=== PATIENT | male | born 1980 | race Caucasian/White ===

== ENCOUNTER 2024-10-02 20:48 | Emergency (ER) | payer MEDICAID, SELFPAY ==
[2024-10-02 20:50] VITALS: BP 132/98; PULSE 68; RESP 20; TEMP 36.3; O2SAT 98
--- NOTE | 2024-10-02 21:00 | RT.EKG_ITS ---
APPROVED REPORT Exam: Resting ECG Reason for Exam: chest burning Patient Location: E HR:63 bpm ECG Measurements Heart Rate 63 AXIS AK 156 P 63 QRSd 119 QRS 60 QT 396 T 64 QTc 406 Conclusion Sinus rhythm...normal P axis, V-rate 60- 99 Probable left ventricular hypertrophy...multiple LVH criteria ST elev, probable normal early repol pattern...ST elevation, age<[address] segment or T wave abnormalities to suggest occlusive HI
--- NOTE | 2024-10-02 21:00 | DI.CT_ITS ---
Exam(s) CT CHEST PE CTA EXAM: CT CHEST PE CTA CLINICAL HISTORY: pink sputum, SOB. TECHNIQUE: Imaging Protocol: Axial CT angiography was performed with multi-slice acquisition and mu lti-planar reconstructions as well as axial, coronal and sagittal MIP reconstructions. Computer aided detection (CAD) was utilized. CONTRAST MATERIAL: Intravenous: Omnipaque 350 Contrast volume:85 ml COMPARISON: No exams were available for comparison FINDINGS: Pulmonary Arteries: No evidence of filling defect to suggest pulmonary emboli. Mediastinum and [place]: No dominant adenopathy or fluid collection. Pulmonary parenchyma: No consolidation or dominant measurable mass. Pleura: No effusion or pneumothorax. Heart: The heart is not dilated. Minimal coronary artery calcifications are seen. Aorta: Thoracic aorta non-dilated. No dissection. Upper abdomen: No acute findings. Bones: Unremarkable for age. Tubes, Catheters, and Lines: None Soft tissues: Bilateral gynecomastia. IMPRESSION: No evidence of pulmonary embolism or other acute abnormality in the chest. RADIATION DOSE DELIVERED: 77.25mGy.cm Total DLP DATA REPOSITORY: All CT scans at this facility are submitted to the National Radiology Data Registry (NRDR) Dose Index Registry (DIR) with the [employer] ([employer]). RADIATION OPTIMIZATION: All CT scans at this facility use at least one of these dose optimization te chniques: automated exposure control; mA and/or kV adjustment per patient size (includes targeted exa ms where dose is matched to clinical indication); or iterative reconstruction.
--- NOTE | 2024-10-02 21:00 | ED.GENADUL_ITS ---
Discharge Plan Disposition Patient Disposition: Home Condition: Stable Discharge Details Clinical Impression: COPD exacerbation Primary Care Provider: Unknown,Unknown ED Provider: Haim Ness Home Meds and New Rx's Prescriptions: New azithromycin 250 mg tablet See Rx Instructions .ROUTE .COMPLEX Qty: 6 0RF Rx Instructions: For 250 mg dose pack: take 500 mg today (day 1), then 250 mg for 4 days (days 2-5) Discharge Instructions Instructions: Azithromycin (Systemic), COPD Exacerbation, Adult ED Additional Instructions: You were seen in the emergency department for your difficulty breathing, URI and incredibly heavy smoker. It is unwise to be smoking 2 packs of cigarettes per day with baseline asthma, you likely have severe COPD at this point. There is no overt pneumonia seen on your chest x-ray, no blood clot in the lungs, you have a nebulizer at home, I am adding azithromycin to your antibiotic regimen that you are already taking doxycycline, continue the prednisone. Please return to an emergency department for severe worsening respiratory distress but I do not think there is any acute emergent pathology at this time. Discharge Data Discharge Date/Time-TO BE ENTERED AT DEPARTURE: 10/02/24 22:55 HPI General Date/Time Provider Initiated Documentation: 10/02/24 21:00 . HPI Narrative: 44 year-old male presents to ED today by POV/ambulating with a chief complaint of shortness of breath, cough, pink frothy sputum- heavy smoking 2 PPD, heavy marijuana smoking, baseline asthma with onset 2 days ago. Quality described as burning sensation in his lungs, worsening over the past 2 days with difficulty breathing, no radiation to coughing up blood, fever, dizziness, abdominal pain, endorses productive cough. Severity is described as severe. Palliating factors include tried prednisone tablets, nebulizer at home, and was started on doxycycline at Urgent Care recently. Provoking factors include nothing specific. Patient not anticoagulated. Related Data Home Medications ?Medication ?Instructions ?Recorded ?Confirmed azithromycin 250 mg tablet See Rx Instructions PO .COMPLEX #6 10/02/24 tabs Previous Rx's ?Medication ?Instructions ?Recorded azithromycin 250 mg tablet See Rx Instructions PO .COMPLEX #6 10/02/24 tabs General Stated Complaint: SOB SERGIO: 3 Review of Systems All systems reviewed & are unremarkable except as noted in HPI and below Exam Narrative Exam Narrative: GENERAL APPEARANCE: Well-nourished, non-toxic, awake and alert, atraumatic, no acute distress. SKIN: Warm, pink, dry, intact, without rashes/lesions/ulcerations. HEAD: Normocephalic, atraumatic, normal hair distribution for gender/age. EYES: Normal conjunctiva, no exudates on lids/lashes. ENT: Nares patent, no circumoral cyanosis, no facial swelling NECK: Supple, trachea midline, painless cervical ROM. LUNGS/CHEST: Lungs CTA bilaterally- no overt rales at bases, poor air movement, mild expiratory wheezes, non-labored respirations, normal A/P diameter, symmetrical expansion, no chest wall deformity HEART (CV/PV): Regular rate and rhythm without murmur, no peripheral edema, no JVD. ABDOMEN: Soft, non-distended, no guarding. MSK: Normal ROM, no swelling/deformity to bilateral UEs or LEs, moving all extremities without weakness, no cyanosis, spine midline without tenderness, no rmal curvature. NEURO: Mental Status AAOx4 - alert to person, place, time, events No facial droop, no forehead involvement. Motor: No focal weakness - strength 5/5 in bilateral UEs and LEs, proximal and distal, symmetric. Sensory: sensation intact to light touch globally. Gait normal: patient ambulated without ataxia into ED room. PSYCH: euthymic, cooperative, pleasant, appropriate speech Course Vital Signs Vital signs: Vital Signs Temperature 36.3 C L 10/02/24 20:50 Pulse 68 10/02/24 20:50 Respiratory Rate 20 10/02/24 20:50 Blood Pressure 132/98 H 10/02/24 20:50 Pulse Oximetry 98 10/02/24 20:50 Temperature 36.3 C L 10/02/24 20:50 Temperature Source Oral 10/02/24 20:50 Pulse 68 10/02/24 20:50 Respiratory Rate 20 10/02/24 20:50 Blood Pressure 132/98 H 10/02/24 20:50 Blood Pressure Position Sitting 10/02/24 20:50 Pulse Oximetry 98 10/02/24 20:50 Oxygen Delivery Method Room Air 10/02/24 20:50 Oxygen Flow Rate 0 10/02/24 20:50 Pain Level 7 10/02/24 20:50 Medical Decision Making This dictation utilizes [id number] dictation software and may contain unedited grammatical errors. 44 year-old male presents to ED today by POV/ambulating with a chief complaint of shortness of breath, cough, pink frothy sputum- heavy smoking 2 PPD, heavy marijuana smoking, baseline asthma with onset 2 days ago. Quality described as burning sensation in his lungs, worsening over the past 2 days with difficulty breathing, no radiation to coughing up blood, fever, dizziness, abdominal pain, endorses productive cough. Severity is described as severe. Palliating factors include tried prednisone tablets, nebulizer at home, and was started on d oxycycline at Urgent Care recently. Provoking factors include nothing specific. Patients' medical history: Likely COPD, states baseline asthma, no prior records. Family and social history: 2 pack/day smoker, heavy marijuana use, drinks 12 beers per day. Pertinent exam findings / vital signs include poor air movement, hacking cough, nonhypoxic, benign abdomen, stable vitals. Differential / pathologies of concern include COPD exacerbation, asthma exacerbation, pneumonia, PE, CHF. Diagnostic studies of: -CBC, CMP, troponin I, BNP, lipase, EKG, CTA chest PE study. -CBC shows a leukocytosis of 17.8 but the patient has been taking prednisone, 0.7% immature granulocytes do suspect some infectious etiology -CMP without actionable abnormality -Magnesium within normal limits -Troponin and BNP negative -Lipase negative -Patient refused COVID swab states he was -10/01 at urgent care -EKG normal sinus rhythm, no ischemic changes -CTA chest PE study shows no acute abnormality Interventions of: -9 mL DuoNeb, 1 g magnesium over 30 minutes for shortness of breath. ED Course/Assessment/Plan: 44-year-old male who is a heavy heavy smoker presents with productive cough, has been seen at urgent care in [place] and started on doxycycline, perform significant workup here, reassured the patient that he is 98% SpO2, no likely emergent pathology, patient discharged adding azithromycin to his prednisone and doxycycline regimen as he is allergic to Augmentin. Counseled strict return criteria for any respiratory distress, patient and his spouse did get into somewhat of a very loud verbal altercation here and security had to be alerted. Findings not consistent with hypoxic respiratory failure, PE, ACS, CHF, sepsis. Disposition of COPD exacerbation. Patient verbalized understanding of the plan and return to ED criteria and engaged in shared decision making. Medical Records Medical records reviewed: Yes I reviewed the patient's medical records. Imaging Data Radiologic Study: Attestation: I personally reviewed and interpreted this imaging study as follows: Imaging: CT Scan Radiologist's impression: Exam: CTA Chest With Contrast Exam date and time: 10/02/2024 9:27 PM Age: 44 years old Clinical indication: Shortness of breath; Patient HX: [place] sputum, SOB TECHNIQUE: Imaging protocol: Computed tomographic angiography of the chest with contrast. Exam focused on the arteries. 3D rendering (Not supervised by radiologist): MIP and/or 3D reconstructed images were created by the technologist. Radiation optimization: All CT scans at this facility use at least one of these dose optimization techniques: automated exposure control; mA and/or kV adjustment per patient size (includes targeted exams where dose is matched to clinical indication); or iterative reconstruction. Contrast material: OMNIPAQUE 350; Contrast volume: 85 ml; Contrast route: INTRAVENOUS (IV); COMPARISON: No relevant prior studies available. FINDINGS: Pulmonary arteries: No pulmonary embolism identified. Aorta: No thoracic aortic aneurysm. Thyroid: Thyroid gland partially excluded from view but grossly unremarkable through its visualized portion. Lungs: No pulmonary consolidation. Pleural spaces: No pleural effusion or pneumothorax. Heart: Normal-sized heart. Lymph nodes: No pathologically enlarged mediastinal or hilar lymph nodes. Bones/joints: Lower ribs partially excluded from view and incompletely evaluated. Otherwise, no acute fracture seen among the bones of the chest. Old left clavicle fracture. Soft tissues: Moderate symmetric gynecomastia, nonspecific. IMPRESSION: No active disease is seen in the chest. Dictated and Authenticated by: Alexandr Aguilar MD. Lab Data Lab results reviewed: Yes I reviewed the patient's lab results. Labs: Laboratory Tests Range/Units 10/02/24 10/02/24 21:01 21:15 WBC (4.4-10.8) 10^3/uL 17.88 H RBC (4.36-5.78) 10^6/uL 4.96 Hgb (13.5-17.5) g/dL 16.2 Hct (40.0-50.0) % 46.2 MCV (80-95) fL 93 MCH (27.0-33.0) pg 32.7 MCHC (32.0-36.0) % 35.1 RDW (11.8-14.1) % 13.8 Plt Count (130-400) 10^3/uL 355 MPV (8.0-11.0) fL 9.0 Immature Gran % % 0.7 Neutrophils % % 84.8 Lymphocytes % % 9.8 Monocytes % % 4.4 Eosinophils % % 0.1 Basophils % % 0.2 Nucleated RBC % (0.0-0.3) % 0.0 Absolute Neutrophils (1.2-6.7) 10^3/uL 15.16 H Absolute Lymphocytes (1.2-3.4) 10^3/uL 1.75 Absolute Monocytes (0.1-0.8) 10^3/uL 0.79 Absolute Eosinophils (0.0-0.7) 10^3/uL 0.02 Absolute Basophils (0.0-0.2) 10^3/uL 0.04 Sodium (136-145) mmol/L 141 Potassium (3.5-5.1) mmol/L 3.7 Chloride (98-107) mmol/L 103 Carbon Dioxide (21.0-32.0) mmol/L 23.9 Anion Gap (3-11) mmol/L 14.1 H BUN (7-18) mg/dL 9 Creatinine (0.70-1.30) mg/dL 1.0 Est GFR (CKD-EPI 2020) (mL/min/1.73m2) 95.77 Glucose (74-106) mg/dL 134 H Calcium (8.5-10.1) mg/dL 9.9 Magnesium (1.8-2.4) mg/dL 1.8 Total Bilirubin (0.2-1.0) mg/dL 0.21 AST (15-37) U/L 18 ALT (16-63) U/L 25 Alkaline Phosphatase (46-116) U/L 107 Troponin I (<or=76) ng/L 5 NT-Pro-B Natriuret Pep (<300) pg/mL 37 Total Protein (6.4-8.2) g/dL 8.1 Albumin (3.4-5.0) g/dL 4.0 Lipase (16-77) U/L 15 L COVID-19 Source Cancelled SARS-CoV-2 (PCR) Cancelled Influenza Type A (PCR) Cancelled Influenza Type B (PCR) Cancelled RSV (PCR) Cancelled Quality:SDOH Health Related Social Needs: No Data to Display PFSH All Active Problems (Updated 10/02/24 @ 22:24 by GILL Villatoro) COPD exacerbation (Acute) Social History Smoking/Tobacco Use Status: Current every day Tobacco Type: cigarettes Smoking risk assessment performed?: Yes Alcohol Intake: current Alcohol Intake frequency: 3 or more drinks per day Substance use type: marijuana PAWSS Have you Been Recently Intoxicated or Drunk Within the Last 30 days?: No Have you Ever Experienced Previous Episodes of Alcohol Withdrawal?: No Have you ever Experienced Withdrawal Seizures?: No Have you ever Experienced Delirium Tremens(DT)s?: No Have you ever undergone Alcohol Rehabilitation Treatment (i.e, inpt ot outpatient treatment programs)?: No Have you ever Experienced Blackouts?: No Have you ever Combined Alcohol with other Downers within the last 90 days?: No Have you ever Combined Alcohol with any other Substance of Abuse during the last 90 days?: No Positive Blood Alcohol level on Presentation? [PCS.BAL]: No Evidence of Increased Autonomic Activity (i.e. HR>120, tremor, sweating, agitation, nausea)?: No Result: 0
[2024-10-02] MEDS: Omnipaque 350 MG/ML 100 ML BTL IJ (21:27)
[2024-10-02] MEDS: Normal Saline - Diluent 50 ML VIAL IJ (21:29)
[2024-10-02] MEDS: Albuterol/Ipratropium 3 ML UPD VIAL 9 ML UPD (21:44)
[2024-10-02] MEDS: MAGNESIUM SULFATE 1 GM/100 ML BAG IV_INF (21:44)
[2024-10-02 21:52] LABS: Abs Immature Grans 0.13 10^3/uL (0.0-0.06); Absolute Basophil Count 0.04 10^3/uL (0.0-0.2); Absolute Monocyte Count 0.79 10^3/uL (0.1-0.8); Basophils % 0.2 %; Eosinophils % 0.1 %; HCT 46.2 % (40.0-50.0); HGB 16.2 g/dL (13.5-17.5); Immature Grans % 0.7 %; Lymphocytes % 9.8 %; MCH 32.7 pg (27.0-33.0); MCHC 35.1 % (32.0-36.0); MCV 93 fL (80-95); Monocytes % 4.4 %; Neutrophils % 84.8 %; Platelet Count 355 10^3/uL (130-400); RBC 4.96 10^6/uL (4.36-5.78); RDW 13.8 % (11.8-14.1); RDW-SD 47.5 fL; WBC 17.88 10^3/uL (4.4-10.8)
[2024-10-02 21:53] LABS: Absolute Eosinophil Count 0.02 10^3/uL (0.0-0.7); Absolute Lymphocyte Count 1.75 10^3/uL (1.2-3.4); Absolute Neutrophil Count 15.16 10^3/uL (1.2-6.7)
[2024-10-02 22:11] LABS: ALT 25 U/L (16-63); AST 18 U/L (15-37); Alkaline Phosphatase 107 U/L (46-116); Anion Gap 14.1 mmol/L (3-11); BUN 9 mg/dL (7-18); Bilirubin, Total 0.21 mg/dL (0.2-1.0); CO2 23.9 mmol/L (21.0-32.0); Chloride 103 mmol/L (98-107); Estimated GFR 95.77 (mL/min/1.73m2); Glucose 134 mg/dL (74-106); Lipase 15 U/L (16-77); Potassium 3.7 mmol/L (3.5-5.1); Sodium 141 mmol/L (136-145); Total Protein 8.1 g/dL (6.4-8.2); Troponin I 5 ng/L (<or=76)
[2024-10-02 22:15] LABS: Calcium 9.9 mg/dL (8.5-10.1)
[2024-10-02 22:20] LABS: Magnesium 1.8 mg/dL (1.8-2.4); NT-proBNP 37 pg/mL (<300)
--- NOTE | 2024-10-02 22:21 | DI.VRAD_ITS ---
PROCEDURE INFORMATION: Exam: CTA Chest With Contrast Exam date and time: 10/02/2024 9:27 PM Age: 44 years old Clinical indication: Shortness of breath; Patient HX: [place] sputum, SOB TECHNIQUE: Imaging protocol: Computed tomographic angiography of the chest with contrast. Exam focused on the arteries. 3D rendering (Not supervised by radiologist): MIP and/or 3D reconstructed images were created by the technologist. Radiation optimization: All CT scans at this facility use at least one of these dose optimization techniques: automated exposure control; mA and/or kV adjustment per patient size (includes targeted exams where dose is matched to clinical indication); or iterative reconstruction. Contrast material: OMNIPAQUE 350; Contrast volume: 85 ml; Contrast route: INTRAVENOUS (IV); COMPARISON: No relevant prior studies available. FINDINGS: Pulmonary arteries: No pulmonary embolism identified. Aorta: No thoracic aortic aneurysm. Thyroid: Thyroid gland partially excluded from view but grossly unremarkable through its visualized portion. Lungs: No pulmonary consolidation. Pleural spaces: No pleural effusion or pneumothorax. Heart: Normal-sized heart. Lymph nodes: No pathologically enlarged mediastinal or hilar lymph nodes. Bones/joints: Lower ribs partially excluded from view and incompletely evaluated. Otherwise, no acute fracture seen among the bones of the chest. Old left clavicle fracture. Soft tissues: Moderate symmetric gynecomastia, nonspecific. IMPRESSION: No active disease is seen in the chest. Dictated and Authenticated by: Alexandr Aguilar MD. Ordering:MATT Whitmore MD
--- NOTE | 2024-10-03 07:05 | NUR.NOTE ---
Accessed chart to determine discharge disposition and orders. Nursing Note:
== END 2024-10-02 22:55 | disposition home or self-care (01) ==
PROVIDERS: Emergency Provider Physician Assistant
DX: J44.1 Chronic obstructive pulmonary disease with (acute) exacerbation (principal)
CPT/HCPCS: 71275; 80053; 83690; 87637; 93005; 96365; 99285; 83735; 83880; 84484; 85025; 93010; 99284; J3475; J3490; J7620